=== PATIENT | male | born 1950 | race Caucasian/White ===

== ENCOUNTER → 2018-04-23 | Outpatient (CLI) | payer MEDICARE, OTHER | LOC: M.ULTRA 09:56 | DX: R10.9 Unspecified abdominal pain (principal); M54.9 Dorsalgia, unspecified; E03.9 Hypothyroidism, unspecified ==

== ENCOUNTER → 2019-11-07 | Outpatient (CLI) | payer MEDICARE, OTHER | LOC: M.RAD 13:35 | DX: J43.9 Emphysema, unspecified (principal); C02.9 Malignant neoplasm of tongue, unspecified; J92.0 Pleural plaque with presence of asbestos; Z98.890 Other specified postprocedural states ==

== ENCOUNTER → 2020-06-22 | Outpatient (CLI) | payer MEDICARE, OTHER | LOC: M.RAD 12:04 | PROVIDERS: ATTEND Registered Nurse Diabetes Educator | DX: J98.4 Other disorders of lung (principal) ==

== ENCOUNTER → 2021-03-08 | Outpatient (CLI) | payer MEDICARE, OTHER | LOC: M.RAD 12:59 | PROVIDERS: ATTEND Registered Nurse Diabetes Educator | DX: R06.02 Shortness of breath (principal); R05 Cough; R07.89 Other chest pain ==

== ENCOUNTER → 2021-03-13 | Outpatient (CLI) | payer MEDICARE, OTHER ==
--- NOTE | 2021-03-13 11:39 | 2DMMODE ---
[place] [address] 2 D/M-MODE ECHOCARDIOGRAM Name: YESIYADY KUMAR Room: [facility]#: [id number] Admission: 03/13/21 Attend Phys: JETT Christiansen Discharge: Date of : 46 Date of Service: 03/13/21 1139 Report #: [id number] THIS REPORT FOR: cc: Jeimy Carlson Tammy RNP Blick, David R. MD [facility] ~ APPROVED REPORT Study performed: 03/13/2021 08:44:01 EXAM: Comprehensive 2D, Doppler, and color-flow Echocardiogram Patient Location: Out-Patient BSA: 1.81 HR: 60 bpm BP: 120/70 mmHg Other Information Study Quality: Good Indications Dyspnea 2D Dimensions IVSd: 11.89 (7-11mm) LVOT Diam: 21.77 (18-24mm) LVDd: 44.29 mm PWd: 11.30 (7-11mm) Ascending Ao: 32.77 (22-36mm) LVDs: 26.94 (25-40mm) Aortic Root: 29.58 mm Volumes Left Atrial Volume (Systole) LA ESV Index: 18.40 mL/m2 Aortic Valve AoV Peak Mark.: 1.03 m/s AO Peak Gr.: 4.27 mmHg LVOT Max P.36 mmHg AO Mean Gr.: 2.11 mmHg LVOT Mean P.51 mmHg LVOT Max V: 0.92 m/s AO V2 VTI: 18.74 cm LVOT Mean V: 0.56 m/s ADOLFO (VTI): 3.90 cm2 LVOT V1 VTI: 19.63 cm Mitral Valve E/A Ratio: 1.03 [place] [address] 2 D/M-MODE ECHOCARDIOGRAM Name: YADY KEY Room: [facility]#: [id number] Admission: 03/13/21 Attend Phys: JETT Christiansen Discharge: Date of : 46 Date of Service: 03/13/21 1139 Report #: [id number] MV Decel. Time: 221.70 ms MV E Max Mark.: 0.58 m/s MV PHT: 64.29 ms MVA (PHT): 3.42 cm2 TDI E/Lateral E': 6.44 E/Medial E': 6.44 Medial E' Mark.: 0.09 m/s Lateral E' Mark.: 0.09 m/s Pulmonary Valve PV Peak Mark.: 0.78 m/s PV Peak Gr.: 2.45 mmHg Tricuspid Valve RAP Estimate: 5.00 mmHg TR Peak Gr.: 20.34 mmHg RVSP: 25.34 mmHg PA Pressure: 25.34 mmHg Left Ventricle The left ventricle is normal size. There is normal LV segmental wall motion. Mild concentric left ventricular hypertrophy. Left ventricular systolic function is normal. The left ventricular ejection fraction is within the normal range. LVEF is 55-60%. The left ventricular diastolic function is normal. Right Ventricle The right ventricle is normal size. The right ventricular systolic function is normal. Atria The left atrium size is normal. The right atrium size is normal. Aortic Valve The aortic valve is normal in structure. Trace aortic regurgitation. There is no aortic valvular stenosis. Mitral Valve The mitral valve is normal in structure. Mild mitral regurgitation. No evidence of mitral valve stenosis. Tricuspid Valve The tricuspid valve is normal in structure. Mild tricuspid regurgitation[place] [address] 2 D/M-MODE ECHOCARDIOGRAM Name: YADY KEY [id number] Admission: 03/13/21 Attend Phys: JETT Christiansen Discharge: Date of : 46 Date of Service: 03/13/21 1139 Report #: [id number] The pulmonary valve is normal in structure. Mild pulmonic regurgitation. Great Vessels The aortic root is normal in size. IVC is normal in size and collapses >50% with inspiration. Pericardium There is no pericardial effusion. <Conclusion> Mild concentric left ventricular hypertrophy. LVEF is 55-60%. Trace aortic regurgitation. Mild mitral regurgitation. <ELECTRONICALLY SIGNED> By: Shay Reddy MD, [facility] 03/13/21 1139 1139 1139 Shay Reddy MD, [facility] /INF
== END ==
LOC: M.CRD 08:35
PROVIDERS: ATTEND Registered Nurse Diabetes Educator
DX: I08.8 Other rheumatic multiple valve diseases (principal)